=== PATIENT | female | born 1990 | race Caucasian/White ===

== ENCOUNTER 2019-03-10 20:07 | Emergency (ER) | payer OTHER, SELFPAY ==
--- OUTSIDE RECORDS SUMMARY | 2019-03-10 20:08 | XMS REPORT ---
:1990 [facility] Address [address] [place] [address] Dr. Hall [address] [place] [id number] Care Team Providers Name Role Phone Unavailable Unavailable Unavailable Problems This patient has no known problems. Allergies, Adverse Reactions, Alerts This patient has no known allergies or adverse reactions. Medications This patient has no known medications.
--- OUTSIDE RECORDS SUMMARY | 2019-03-10 20:08 | XMS REPORT | Summary of Care ---
:1990 Author Organization [facility] Address [address] [place] [id number] Care Team Providers Name Role Phone Pcp, Patient Does Not Have A Primary Care Provider Reason for Visit Reason Comments Nausea Auth/Cert Status Reason Specialty Diagnoses / Referred By Referred To Procedures Contact Contact [facility] [address] [place] [address] [place] [address] Encounter Details Date Type Department Care Team Description 02/26/2019 Emergency [facility]-Emergency Bartolo Clancy III, Pharyngitis, unspecified etiology (Primary Dx); Department PA Allergic rhinitis, unspecified seasonality, unspecified trigger [address] [place] [address] [place] [address] [place] [address] [place], [place] [id number] Allergies No Known Allergiesdocumented as of this encounter (statuses as of 02/26/2019) Medications Medication Sig Dispensed Refills Start Date End Date Status fexofenadine 180 mg Take 1 tablet by 30 tablet 0 02/26/2019 Active tabletIndications: mouth daily. Pharyngitis, unspecified etiology, Allergic rhinitis, unspecified seasonality, unspecified trigger sod Use 1 Bottle in 1 Each 0 02/26/2019 Active mjhdh-lamieo-juplyx each nostril 2 bottle (NEILMED SINUS (two) times RINSE COMPLETE) daily. Use in pkdvIndications: hot shower 1 Pharyngitis, hour before unspecified etiology, bedtime Allergic rhinitis, unspecified seasonality, unspecified trigger predniSONE 10 mg Take 4 tablets 12 tablet 0 02/26/2019 03/01/2019 Active tabletIndications: by mouth daily Pharyngitis, for 3 days. unspecified etiology, Allergic rhinitis, unspecified seasonality, unspecified trigger traMADol (ULTRAM) 50 Take 1 tablet by 9 tablet 0 02/26/2019 Active mg tabletIndications: mouth every 8 Pharyngitis, (eight) hours as unspecified etiology, needed for Pain Allergic rhinitis, (scale 4-6). unspecified seasonality, unspecified trigger documented as of this encounter (statuses as of 02/26/2019) Active Problems No known active problemsdocumented as of this encounter (statuses as of 2018) Social History Tobacco Use Types Packs/Day Years Used Date Never Assessed Sex Assigned at Date Recorded Not on file Job Start Date Occupation Industry Not on file Not on file Not on file Travel History Travel Start Travel End No recent travel history available. documented as of this encounter Last Filed Vital Signs Vital Sign Reading Time Taken Comments Blood Pressure 114/97 02/26/2019 8:12 PM CDT Pulse 90 02/26/2019 8:12 PM CDT Temperature 36.8 C (98.3 F) 02/26/2019 8:12 PM CDT Respiratory Rate 18 02/26/2019 8:12 PM CDT Oxygen Saturation 100% 02/26/2019 8:12 PM CDT Inhaled Oxygen Concentration - - Weight 78.5 kg (173 lb) 02/26/2019 8:12 PM CDT Height - - Body Mass Index - - documented in this encounter Discharge Instructions Bartolo Newberry III, PA - 02/26/2019 @@@@@@@@@@@@@@@@@@@@@@@@@@@@@@@@@@@@@@@@@@@@@@@@@@@@@ [facility] RETURN TO WORK / SCHOOL EXCUSE Shraddha Whipple WAS SEEN IN THE ER AND DISCHARGED 02/26/2019 TODAY, 8:39 PM & May return to Work / School / Incarceration on 02/27/19 with No limitations unless indicated below. ___The following limitations apply until pt is seen by Physician and cleared to return to normal activity. ___ Light duty ___ No Sports ___ No work ___ Do not return until fever free for 24 hours. ___ No school Ed Aston PA-C [facility] [address] [place] [address] [place] [address] If you are unprepared to return to work tomorrow due to pain please give this note to your employer and make a follow up appointment with your MD for further evaluation and limitations. ### The patient may have been given Narcotic pain medications during their stay in the ED that may show up on a Drug Screen. The hospital discharge paper work will identify these medications. @@@@@@@@@@@@@@@@@@@@@@@@@@@@@@@@@@@@@@@@@@@@@@@@@@@@@ Thank you for trusting us with your care. The emergency room is the first stop in the medical management of your complaint . Our primary pupose is to identify life threatening emergancies and to rapidly address those issues. We are releasing you today after evaluation for emergency or life threatening problems related to your complaint. At this time we are comfortable that your condition is stable enough to go home, take oral medications and follow up for further care. If you can't afford a doctor OR MEDICATIONS consider [facility], [address] [place] [address]; [phone] Medications [facility] [facility] WILL SHOW YOU WHERE YOU CAN GET YOUR MEDICATIONS CHEAPEST. 1. Call your doctor and let them know you were seen for ICD-10-CM ICD-9-CM 1. Pharyngitis, unspecified etiology J02.9 462 2. Allergic rhinitis, unspecified seasonality, unspecified trigger J30.9 477.9 2. Schedule a follow up within 3 days of your ER visit. 3. Take your prescriptions to the pharmacy and get them filled today. 4. Take the medications as prescribed and until completed. 5. You have been referred for further care 6. You may need additional tests Your doctors will help you figure out what you need and how to get them done. 7. Please read all paperwork provided to you. Additional instructions See Attached AttachmentsThe following attachments cannot be sent through Care Everywhere.Allergies (Nasal): Related Problems (Guyanese)Sore Throats, Self-Care for (Guyanese)documented in this encounter Plan of Treatment Name Type Priority Associated Diagnoses Date/Time THROAT CULTURE LAB STAT Pharyngitis, unspecified 02/26/2019 8:35 PM CDT etiology Name Type Priority Associated Diagnoses Order Schedule THROAT CULTURE LAB Routine Pharyngitis, unspecified ONCE for 1 Occurrences etiology starting 02/26/2019 until 02/26/2019 Health Maintenance Due Date Last Done Comments VARICELLA VACCINES (1 of 2 - 13+ 01/29/2004 2-dose series) DTaP,Tdap,and Td Vaccines (1 - 2010 Tdap) PAP SMEAR 01/29/2012 INFLUENZA VACCINE (#1) 2019 PNEUMOCOCCAL 0-64 YEARS COMBINED Aged Out No longer eligible based on SERIES patient's age to complete this topic documented as of this encounter Procedures Procedure Name Priority Date/Time Associated Diagnosis Comments RAPID STREP SCREEN STAT 02/26/2019 8:35 PM Pharyngitis, Results for this FOR GROUP A CDT unspecified etiology procedure are in the results section. NOTICE OF PRIVACY Routine 02/26/2019 8:00 PM PRACTICES CDT CONSENT/REFUSAL FOR Routine 02/26/2019 7:59 PM DIAGNOSIS AND CDT TREATMENT documented in this encounter Results RAPID STREP SCREEN FOR GROUP A (02/26/2019 8:35 PM CDT) Streptococcus pyogenes Negative Negative [facility] (group A) antigen HOSPITAL LABORATORY Specimen Swab - THROAT Performing Organization Address City/State/Zipcode Phone Number [facility] CLIA: [id number], [address] [place] [address] documented in this encounter Visit Diagnoses Diagnosis Pharyngitis, unspecified etiology - Primary Allergic rhinitis, unspecified seasonality, unspecified trigger documented in this encounter
[2019-03-10 21:46] LABS: Absolute Lymphocytes (CBC) 3.1 K/uL (0.7-4.9); Basophils % 0.5 % (0-1.3); Hematocrit 41.6 % (36.0-45.0); Lymphocytes % 27.2 % (15.3-44.8); MPV 9.1 fL (7.6-11.3); RBC Red Blood Cell Count 4.52 M/uL (3.86-4.86)
[2019-03-10 21:47] LABS: Protime INR 1.11
[2019-03-10 22:39] LABS: ALT/SGPT 31 U/L (12-78); AST/SGOT 13 U/L (15-37); Alkaline Phosphatase 54 U/L (45-117); BUN Blood Urea Nitrogen 8 mg/dL (7-18); Bicarbonate 23 mmol/L (21-32); Bilirubin Direct 0.1 mg/dL (0-0.2); Bilirubin Total 0.5 mg/dL (0.2-1.0); Glucose Level 90 mg/dL (74-106); NT PRO-BNP 57 pg/mL (<125); Potassium 3.4 mmol/L (3.5-5.1); Sodium Level 141 mmol/L (136-145); T3 Free 3.11 pg/mL (2.18-3.98); Troponin (Emerg Dept Use Only) < 0.02 ng/mL (0.0-0.045)
--- NOTE | 2019-03-10 22:49 | ER ---
Nurse's Notes [facility] Name: Shraddha Young Age: 29 yrs Sex: Female : 1990 Arrival Date: 03/10/2019 Time: 20:10 Bed 23 Private MD: Diagnosis: Dizziness and giddiness;Chest pain, unspecified;Abdominal and pelvic pain Presentation: 03/10 20:23 Presenting complaint: Patient states: Chest pain on and off all day and LLQ abdominal lp1 pain; States "It freaked me out so bad, I almost had a panic attack"; Denies any pain but states feeling overwhelmed. Transition of care: patient was not received from another setting of care. Onset of symptoms was March 10, 2019. Risk Assessment: Do you want to hurt yourself or someone else? Patient reports no desire to harm self or others. Initial Sepsis Screen: Does the patient meet any 2 criteria? No. Patient's initial sepsis screen is negative. Does the patient have a suspected source of infection? No. Patient's initial sepsis screen is negative. Care prior to arrival: None. 20:23 Method Of Arrival: Ambulatory lp1 20:23 Acuity: CHRISTIANO 3 lp1 MANAGER RADIO: 20:24 LMP N/A - control method lp1 Historical: - Allergies: 20:25 No Known Allergies; lp1 - Home Meds: 20:25 None [Active]; lp1 - PMHx: 20:25 None; lp1 - PSHx: 20:25 None; lp1 - Immunization history:: Adult Immunizations up to date. - Social history:: Smoking status: Patient uses tobacco products, smokes one-half pack cigarettes per day. - Ebola Screening: : No symptoms or risks identified at this time. Screenin:30 Abuse screen: Denies threats or abuse. Denies injuries from another. Nutritional ca1 screening: No deficits noted. Tuberculosis screening: No symptoms or risk factors identified. Fall Risk IV access (20 points). Assessment: 20:30 General: Appears in no apparent distress. comfortable, Behavior is calm, cooperative, ca1 appropriate for age. Pain: Complains of pain in anterior aspect of left upper chest Pain does not radiate. Pain currently is 7 out of 10 on a pain scale. Quality of pain is described as pressure, Pain began 1300 today Is intermittent. Neuro: Level of Consciousness is awake, alert, obeys commands, Oriented to person, place, time, situation. Neuro: Reports dizziness, since couple weeks ago. Cardiovascular: Heart tones S1 S2 present Capillary refill < 3 seconds Patient's skin is warm and dry. Pulses are all present. Rhythm is sinus rhythm. Respiratory: Airway is patent Respiratory effort is even, unlabored, Respiratory pattern is regular, symmetrical, Breath sounds are clear bilaterally. GI: Abdomen is round non-distended, Bowel sounds present X 4 quads. Abd is soft and non tender X 4 quads. Reports nausea, since couple weeks ago. : No deficits noted. No signs and/or symptoms were reported regarding the genitourinary system. EENT: No deficits noted. No signs and/or symptoms were reported regarding the EENT system. Derm: Skin is intact, is healthy with good turgor, Skin is pink, warm \\T\\ dry. Musculoskeletal: Circulation, motion, and sensation intact. Capillary refill < 3 seconds, Range of motion: intact in all extremities. 21:55 Reassessment: Patient appears in no apparent distress at this time. Patient and/or ca1 family updated on plan of care and expected duration. Pain level reassessed. Patient is alert, oriented x 3, equal unlabored respirations, skin warm/dry/pink. 22:41 Reassessment: Patient appears in no apparent distress at this time. Patient and/or wh family updated on plan of care and expected duration. Pain level reassessed. Patient is alert, oriented x 3, equal unlabored respirations, skin warm/dry/pink. 23:42 Reassessment: Patient appears in no apparent distress at this time. No changes from previously documented assessment. Patient and/or family updated on plan of care and expected duration. Pain level reassessed. Patient is alert, oriented x 3, equal unlabored respirations, skin warm/dry/pink. Vital Signs: 20:24 BP 149 / 87; Pulse 86; Resp 18; Temp 97.4(O); Pulse Ox 99% on R/A; Weight 76.2 kg (R); lp1 Height 5 ft. 5 in. (165.10 cm); Pain 6/10; 21:55 BP 123 / 83; Pulse 77; Resp 18 S; Pulse Ox 99% on R/A; ca1 22:30 BP 132 / 86; Pulse 63; Resp 18; Pulse Ox 98% on R/A; wh 23:44 BP 132 / 86; Pulse 66; Resp 17 S; Pulse Ox 98% on R/A; jd3 20:24 Body Mass Index 27.96 (76.20 kg, 165.10 cm) lp1 ED Course: 20:10 Patient arrived in ED. mr 20:13 Urban Roberts MD is Attending Physician. kdr 20:24 Triage completed. lp1 20:24 Arm band placed on. lp1 20:30 Patient has correct armband on for positive identification. Placed in gown. Bed in low ca1 position. Call light in reach. Side rails up X 1. full stack php developer on. Pulse ox on. NIBP on. Warm blanket given. 20:30 No provider procedures requiring assistance completed. Inserted saline lock: 20 gauge ca1 in left antecubital area, using aseptic technique. Blood collected. 20:30 Patient maintains SpO2 saturation greater than 95% on room air. ca1 20:37 Starla Thomas, RN is Primary Nurse. ca1 21:36 XRAY Chest (1 view) In Process Unspecified. EDMS 23:46 IV discontinued, intact, bleeding controlled, No redness/swelling at site. Administered Medications: No medications were administered Outcome: 22:47 Discharge ordered by . [facility] 23:44 Discharged to home ambulatory, with family. 23:44 Condition: good 23:44 Discharge instructions given to patient, Instructed on discharge instructions, follow up and referral plans. POC Unspecified Chest Pain and Abd Pain Demonstrated understanding of instructions, follow-up care, POC 23:46 Patient left the ED. Signatures: Dispatcher [employer] EDMS Urban Roberts MD MD [facility] Jenny Moreland mr Mirian Haile, RN RN lp1 Nito Cannon Klaus Bustos RN RN jd3 Starla Thomas RN RN ca1 Corrections: (The following items were deleted from the chart) 21:36 21:35 Inserted saline lock: 20 gauge in left antecubital area, using aseptic technique. ca1 Blood collected. 21:55 21:35 Patient maintains SpO2 saturation greater than 95% on room air. ca1 21:55 21:35 Inserted saline lock: 20 gauge in left antecubital area, using aseptic technique. ca1 Blood collected. ca1
--- NOTE | 2019-03-10 22:49 | EDPHYS ---
Physician Documentation [facility] Name: Shraddha Young Age: 29 yrs Sex: Female : 1990 Arrival Date: 03/10/2019 Time: 20:10 Bed 23 Private MD: ED Physician Urban Roberts HPI: 03/10 21:34 This 29 yrs old Female presents to ER via Ambulatory with complaints of Chest kdr Pain, Abdominal Pain. 21:36 The patient has been dizzy for about a week and today had chest pain, palpations and kdr abdominal pain. THis has been ongoing for several weeks with the new CP/pressure and abdominal pain happening today. 03/11 01:03 Onset: The symptoms/episode began/occurred gradually. Severity of symptoms: At their kdr worst the symptoms were moderate severe incapacitating just prior to arrival, today, in the emergency department the symptoms have improved markedly, Nearly resolved. The patient has not experienced similar symptoms in the past. The patient has been recently seen by a physician: the patient's primary care provider, Had full w/u with no etiology found. MANAGER FOOD: 03/10 20:24 LMP N/A - control method lp1 Historical: - Allergies: 20:25 No Known Allergies; lp1 - Home Meds: 20:25 None [Active]; lp1 - PMHx: 20:25 None; lp1 - PSHx: 20:25 None; lp1 - Immunization history:: Adult Immunizations up to date. - Social history:: Smoking status: Patient uses tobacco products, smokes one-half pack cigarettes per day. - Ebola Screening: : No symptoms or risks identified at this time. ROS: 03/11 01:03 Constitutional: Negative for fever, chills, and weight loss, Eyes: Negative for injury, kdr pain, redness, and discharge, ENT: Negative for injury, pain, and discharge, Neck: Negative for injury, pain, and swelling, Respiratory: Negative for shortness of breath, cough, wheezing, and pleuritic chest pain, Back: Negative for injury and pain, : Negative for injury, bleeding, discharge, and swelling, MS/Extremity: Negative for injury and deformity, Skin: Negative for injury, rash, and discoloration, Neuro: Negative for headache, weakness, numbness, tingling, and seizure activity. Psych: Negative for depression, anxiety, suicide ideation, homicidal ideation, and hallucinations, Allergy/Immunology: Negative for hives, rash, and allergies, Endocrine: Negative for neck swelling, polydipsia, polyuria, polyphagia, and marked weight changes, Hematologic/Lymphatic: Negative for swollen nodes, abnormal bleeding, and unusual bruising. Cardiovascular: Positive for palpitations, Negative for chest pain, edema, orthopnea, paroxysmal nocturnal dyspnea. Abdomen/GI: Positive for abdominal pain, nausea, Negative for vomiting, abdominal distension, anorexia, dysphagia, hematemesis, black/tarry stool, rectal pain, rectal bleeding. Exam: 01:03 Constitutional: This is a well developed, well nourished patient who is awake, alert, kdr and in no acute distress. Head/Face: Normocephalic, atraumatic. Eyes: Pupils equal round and reactive to light, extra-ocular motions intact. Lids and lashes normal. Conjunctiva and sclera are non-icteric and not injected. Cornea within normal limits. Periorbital areas with no swelling, redness, or edema. Neck: Trachea midline, no thyromegaly or masses palpated, and no cervical lymphadenopathy. Supple, full range of motion without nuchal rigidity, or vertebral point tenderness. No Meningismus. Chest/axilla: Normal chest wall appearance and motion. Nontender with no deformity. No lesions are appreciated. Cardiovascular: Regular rate and rhythm with a normal S1 and S2. No gallops, murmurs, or rubs. Normal PMI, no JVD. No pulse deficits. Respiratory: Lungs have equal breath sounds bilaterally, clear to auscultation and percussion. No rales, rhonchi or wheezes noted. No increased work of breathing, no retractions or nasal flaring. Abdomen/GI: Soft, non-tender, with normal bowel sounds. No distension or tympany. No guarding or rebound. No evidence of tenderness throughout. Back: No spinal tenderness. No costovertebral tenderness. Full range of motion. Skin: Warm, dry with normal turgor. Normal color with no rashes, no lesions, and no evidence of cellulitis. MS/ Extremity: Pulses equal, no cyanosis. Neurovascular intact. Full, normal range of motion. Neuro: Awake and alert, GCS 15, oriented to person, place, time, and situation. Cranial nerves II-XII grossly intact. Motor strength 5/5 in all extremities. Sensory grossly intact. Cerebellar exam normal. Normal gait. Psych: Awake, alert, with orientation to person, place and time. Behavior, mood, and affect are within normal limits. Vital Signs: 03/10 20:24 BP 149 / 87; Pulse 86; Resp 18; Temp 97.4(O); Pulse Ox 99% on R/A; Weight 76.2 kg (R); lp1 Height 5 ft. 5 in. (165.10 cm); Pain 6/10; 21:55 BP 123 / 83; Pulse 77; Resp 18 S; Pulse Ox 99% on R/A; ca1 22:30 BP 132 / 86; Pulse 63; Resp 18; Pulse Ox 98% on R/A; wh 23:44 BP 132 / 86; Pulse 66; Resp 17 S; Pulse Ox 98% on R/A; jd3 20:24 Body Mass Index 27.96 (76.20 kg, 165.10 cm) lp1 MDM: 22:47 Patient medically screened. kdr 03/11 01:03 Data reviewed: vital signs, nurses notes, lab test result(s), radiologic studies. kdr Counseling: I had a detailed discussion with the patient and/or guardian regarding: the historical points, exam findings, and any diagnostic results supporting the discharge/admit diagnosis, lab results, radiology results, the need for outpatient follow up. 03/10 21:03 Order name: Basic Metabolic Panel; Complete Time: 22:44 kdr 03/10 21:03 Order name: CBC with Diff; Complete Time: 21:55 kdr 03/10 21:03 Order name: LFT's; Complete Time: 22:44 kdr 03/10 21:03 Order name: Magnesium; Complete Time: 22:44 kdr 03/10 21:03 Order name: NT PRO-BNP; Complete Time: 22:44 kdr 03/10 21:03 Order name: PT-INR; Complete Time: 23:20 kdr 03/10 21:03 Order name: Troponin (emerg Dept Use Only); Complete Time: 22:44 kdr 03/10 21:03 Order name: XRAY Chest (1 view) kdr 03/10 21:03 Order name: EKG; Complete Time: 21:05 kdr 03/10 21:03 Order name: Thyroid Stimulat Hormone; Complete Time: 22:44 [facility] 03/10 21:03 Order name: T3 Free; Complete Time: 22:44 [facility] 03/10 21:03 Order name: T4 Free; Complete Time: :44 [facility] 03/10 23:08 Order name: D-Dimer; Complete Time: 23:20 [facility] 03/10 21:03 Order name: Cardiac monitoring; Complete Time: 21:35 [facility] 03/10 21:03 Order name: EKG - Nurse/Tech; Complete Time: :35 [facility] 03/10 21:03 Order name: IV Saline Lock; Complete Time: :35 [facility] 03/10 21:03 Order name: Labs collected and sent; Complete Time: :35 [facility] 03/10 21:03 Order name: O2 Per Protocol; Complete Time: :35 [facility] 03/10 21:03 Order name: O2 Sat Monitoring; Complete Time: :35 [facility] Administered Medications: No medications were administered Disposition: 03/10/19 22:47 Discharged to Home. Impression: Dizziness and giddiness, Chest pain, unspecified, Abdominal and pelvic pain. - Condition is Stable. - Discharge Instructions: Abdominal Pain, Adult, Nonspecific Chest Pain, Dizziness. - Medication Reconciliation Form, Thank You Letter form. - Follow up: Private Physician; When: 2 - 3 days; Reason: If symptoms return, Further diagnostic work-up, Recheck today's complaints, Continuance of care, Re-evaluation by your physician. - Problem is an ongoing problem. - Symptoms have improved. Signatures: Dispatcher [employer] [facility] Urban Roberts MD MD [facility] Mirian Haile RN RN lp1 Nito Cannon Corrections: (The following items were deleted from the chart) 03/10 23:07 23:00 D-DIMER+COAG.LAB.BRZ ordered. [facility] 23:46 22:47 03/10/2019 22:47 Discharged to Home. Impression: Dizziness and giddiness; Chest wh pain, unspecified; Abdominal and pelvic pain. Condition is Stable. Forms are Medication Reconciliation Form, Thank You Letter, Antibiotic Education, Prescription Opioid Use. Follow up: Private Physician; When: 2 - 3 days; Reason: If symptoms return, Further diagnostic work-up, Recheck today's complaints, Continuance of care, Re-evaluation by your physician. Problem is an ongoing problem. Symptoms have improved. kdr
[2019-03-11 00:50] VITALS: TEMP 97.4
[2019-03-11 00:52] VITALS: BP 132/86; O2SAT 98
--- NOTE | 2019-03-11 08:03 | RAD REPORT ---
EXAM DESCRIPTION: RAD - Chest Single View - 03/10/2019 9:35 pm CLINICAL HISTORY: Chest pain COMPARISON: None. TECHNIQUE: AP portable chest image was obtained 2119 hours . FINDINGS: Lungs are clear. Heart and vasculature are normal. No measurable pleural effusion and no p neumothorax. No acute bony abnormality seen. No acute aortic findings suspected. IMPRESSION: No acute cardiopulmonary process.
--- NOTE | 2019-03-11 08:23 | EKG ---
Test Date: 2019-03-10 Test Time: 21:29:49 Cloth Folder Machine: HANNY MEASUREMENT RESULTS: Intervals: Rate: 73 [place]: QRSD: 76 QT: 382 QTc: 420 [place]: P: [place]: QRS: 50 T: -17 INTERPRETIVE STATEMENTS: Sinus rhythm Nonspecific T wave abnormality Abnormal ECG No previous ECG available for comparison Electronically Signed On 03-11-19 08:23:23 CDT by Aramis Syed
== END 2019-03-10 23:46 | disposition home or self-care (01) ==
LOC: ER 20:07
DX: R07.9 Chest pain, unspecified (principal); R10.2 Pelvic and perineal pain; F17.210 Nicotine dependence, cigarettes, uncomplicated
CPT/HCPCS: 36415; 71045; 80048; 80076; 83735; 83880; 84439; 84443; 84481; 84484; 85025; 85379; 85610; 93005; 99285